=== PATIENT | female | born 1980 | race Caucasian/White ===

== ENCOUNTER 2019-03-18 09:24 | Emergency (ER) | payer MEDICAID ==
[2019-03-18] MEDS ORDERED: Ketorolac 60 MG/2 ML SDV IM ONE (09:57)
[2019-03-18] MEDS ORDERED: Acetaminophen 500 MG Tab PO ONE (09:58)
--- NOTE | 2019-03-18 10:03 | EDM.PDOC ---
ED HPI GENERAL MEDICAL PROBLEM - General Chief Complaint: Upper Extremity Injury/Pain Stated Complaint: PAIN IN RIGHT SHOULDER Time Seen by Provider: 03/18/19 09:50 Source of Information: Reports: Patient, Old Records, RN History Limitations: Reports: No Limitations - History of Present Illness INITIAL COMMENTS - FREE TEXT/NARRATIVE: 38 yo female injured her R upper back when doing some heavy lifting a couple days ago. "Dixon like a rubber band let loose." Took one Tylenol about 10 hrs ago only. Hurts now to breath or move. 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 (10 hrs ago) Middle Back Pain Score (Numeric/FACES): 8 - Related Data Allergies Allergy/AdvReac Type Severity Reaction Status Date / Time No Known Allergies Allergy Verified 03/18/19 09:39 Home Meds: Home Meds Rizatriptan Benzoate [Rizatriptan] 10 mg PO TID PRN 04/04/14 [History] Past Medical History HEENT History: Reports: Impaired Vision Genitourinary History: Reports: None STRIPPER PRELIMINARY History: Reports: Musculoskeletal History: Reports: None Neurological History: Reports: Concussion, Head Trauma, Migraines Psychiatric History: Reports: PTSD Oncologic (Cancer) History: Reports: None - Past Surgical History Head Surgeries/Procedures: Reports: None HEENT Surgical History: Reports: None Female Surgical History: Reports: Hysterectomy Neurological Surgical History: Reports: None Musculoskeletal Surgical History: Reports: Other (See Below) Other Musculoskeletal Surgeries/Procedures:: neck, left leg Oncologic Surgical History: Reports: Biopsy of Breast Dermatological Surgical History: Reports: None Social & Family History - Tobacco Use Smoking Status *Q: Current Every Day Smoker Years of Tobacco use: 28 Packs/Tins Daily: 0.4 Used Tobacco, but Quit: No - Caffeine Use Caffeine Use: Reports: Soda - Recreational Drug Use Recreational Drug Use: No Review of Systems - Review of Systems Review Of Systems: See Below Constitutional: Reports: No Symptoms Respiratory: Reports: Pleuritic Chest Pain. Denies: Shortness of Breath, Wheezing, Cough, Sputum, Hemoptysis Cardiovascular: Reports: No Symptoms Musculoskeletal: Reports: Back Pain (R upper back, between shoulder blades) Skin: Reports: No Symptoms Neurological: Reports: No Symptoms ED EXAM, GENERAL - Physical Exam Exam: See Below Exam Limited By: No Limitations General Appearance: Alert, WD/WN, Mild Distress Eye Exam: Bilateral Eye: Normal Inspection Ears: Normal External Exam, Normal Canal, Hearing Grossly Normal Ear Exam: Bilateral Ear: Auricle Normal, Canal Normal Nose: Normal Inspection, No Blood Head: Atraumatic, Normocephalic Neck: Normal Inspection Respiratory/Chest: No Respiratory Distress, Lungs Clear, Normal Breath Sounds, No Accessory Muscle Use Cardiovascular: Regular Rate, Rhythm, No Edema, Tachycardia Back Exam: Normal Inspection, Paraspinal Tenderness (R side, between shoulder blades-tender with palpation. ). No: CVA Tenderness (R), CVA Tenderness (L) Extremities: Normal Inspection, Normal Range of Motion, Non-Tender, No Pedal Edema Neurological: Alert, Oriented, CN II-XII Intact, Normal Cognition, No Motor/ Sensory Deficits Psychiatric: Normal Affect, Normal Mood Skin Exam: Warm, Dry, Intact, Normal Color, No Rash Course - Vital Signs Text/Narrative:: Feeling better after our meds Last Recorded V/S: Last Vital Signs Temp 35.3 C 03/18/19 09:43 Pulse 106 H 03/18/19 09:43 Resp 17 03/18/19 09:43 BP 116/74 03/18/19 09:43 Pulse Ox 100 03/18/19 09:43 - Orders/Labs/Meds Meds: Medications Discontinued Medications Generic Name Dose Route Start Last Admin Trade Name Raul PRN Reason Stop Dose Admin Acetaminophen 1,000 mg 03/18/19 09:58 03/18/19 10:01 Tylenol Extra Strength PO 03/18/19 09:59 1,000 mg ONETIME ONE Administration Ketorolac Tromethamine 60 mg 03/18/19 09:57 03/18/19 10:02 Toradol IM 03/18/19 09:58 60 mg ONETIME ONE Administration - Radiology Interpretation Free Text/Narrative:: CXR-neg Departure - Departure Time of Disposition: 10:49 Disposition: Home, Self-Care 01 Condition: Good Clinical Impression: Pulled muscle - Discharge Information *PRESCRIPTION DRUG MONITORING PROGRAM REVIEWED*: No *COPY OF PRESCRIPTION DRUG MONITORING REPORT IN PATIENT RICCI: No Referrals: Jose Andrews MD [Primary Care Provider] - Forms: ED Department Discharge Additional Instructions: Take acetaminophen up to 1000 mg every 6 hrs and naproxen sodium 2 every 8 hrs with food as needed for pain relief, next dose of each after 4 pm today. Massage of area as tolerated. No heavy lifting. Recheck with your provider as needed.
--- NOTE | 2019-03-18 10:28 | CRLCR ---
Indication: Right upper back pain with breathing. Injury 2 days ago. Technique: PA and lateral views the chest were obtained. Comparison: None Findings: The heart is normal in size. The lungs are clear. No infiltrate, pleural effusion, or pneumothorax is identified. Impression: No acute cardiopulmonary process. Dictated by Oralia Tom MD @ Mar 18 2019 10:25AM Signed by Dr. Oralia Tom @ Mar 18 2019 10:26AM
== END 2019-03-18 10:59 | disposition home or self-care (01) ==
LOC: JP.ED 09:24
DX: S29.012A Strain of muscle and tendon of back wall of thorax, initial encounter (principal); F17.210 Nicotine dependence, cigarettes, uncomplicated; Z79.899 Other long term (current) drug therapy; X50.0XXA Overexertion from strenuous movement or load, initial encounter
CPT/HCPCS: 71046; 96372; 99283; A9270; J1885